=== PATIENT | female | born 1950 | race Caucasian/White ===

== ENCOUNTER 2017-11-20 09:09 | Emergency (ER) | payer MEDICARE, OTHER ==
[~2017-11-20] VITALS: Ht 170.2 cm; Wt 72.6 kg
[2017-11-20 09:45] VITALS: BP 155/97
== END 2017-11-20 10:42 | disposition home or self-care (01) ==
LOC: ER 09:09
DX: K04.7 Periapical abscess without sinus (principal); K12.2 Cellulitis and abscess of mouth; Z88.0 Allergy status to penicillin; Z91.041 Radiographic dye allergy status; Z91.040 Latex allergy status

== ENCOUNTER 2024-01-06 11:17 | Emergency (ER) | payer MEDICARE, OTHER ==
[~2024-01-06] VITALS: Ht 170.2 cm; Wt 83.6 kg
[2024-01-06 12:12] VITALS: BP 150/80; PULSE 103; RESP 16; TEMP 97.8; O2SAT 96
== END 2024-01-06 13:04 | disposition home or self-care (01) ==
LOC: ER 11:17
DX: S52.572A Other intraarticular fracture of lower end of left radius, initial encounter for closed fracture (principal); S52.615A Nondisplaced fracture of left ulna styloid process, initial encounter for closed fracture; Z88.0 Allergy status to penicillin; Z88.1 Allergy status to other antibiotic agents; Z88.6 Allergy status to analgesic agent; Z91.040 Latex allergy status; W18.09XA Striking against other object with subsequent fall, initial encounter; Y93.E1 Activity, personal bathing and showering; Y92.091 Bathroom in other non-institutional residence as the place of occurrence of the external cause; Y99.8 Other external cause status
CPT/HCPCS: 29125; 73110; 73130